=== PATIENT | male | born 1960 | race Caucasian/White ===

== ENCOUNTER → 2018-01-04 18:00 | Outpatient (CLI) | payer OTHER, SELFPAY ==
--- NOTE | 2018-01-04 18:03 | DI.MRI.S_ITS ---
PROCEDURE: MR CERVICAL SPINE WO CON INDICATIONS: CERVICALGIA TECHNIQUE: Noncontrast sagittal T1 spin echo and T2 fast spin echo, sagittal STIR, foraminal oblique sagittal T2 fast spin echo, and axial gradient echo or T2 fast spin echo through the cervical spine. COMPARISON: [facility], MR, C-SPINE WITHOUT CONTRAST, 01/02/2014, 14:36. FINDINGS: Image quality: There are motion artifacts. Alignment and Curvature: There is loss of cervical lordosis with mild kyphotic curvature. There is normal bony alignment. Bone Marrow: Marrow demonstrates normal overall signal. Spinal Cord: There is mild syrinx in the lower cervical cord at C6-C7, unchanged from the last exam. Visualized spinal cord has normal size and signal. No cerebellar tonsillar herniation. Paraspinous Soft Tissues: No paravertebral masses. Prevertebral soft tissues are normal in thickness. C2-C3: Preserved disc height. Mild disc desiccation. There is broad posterior disc bulge, eccentric toward the left. Bilateral uncovertebral hypertrophy. The central canal is patent. No foraminal stenosis. C3-C4: Preserved disc height. Mild disc desiccation. There is broad posterior disc bulge and disc osteophyte complex, left greater than right. Bilateral uncovertebral hypertrophy. The central canal is xqenphbx-iz-ybjvbexp narrowed. Moderate bilateral foraminal stenosis. Compared to the last exam, there is increased central canal and foramina stenosis. C4-C5: Mild loss of disc height and disc desiccation. There is diffuse disc bulge and disc osteophyte complex. Bilateral uncovertebral hypertrophy. Mild facet arthropathy bilaterally. The central canal is uqeeaplq-mo-nqolhdij narrowed. Severe bilateral foraminal stenosis. Compared to the last exam, there is increased central canal and foramina stenosis. C5-C6: Mild loss of disc height and disc desiccation. There is diffuse disc bulge and disc osteophyte complex. Bilateral uncovertebral hypertrophy. Mild facet arthropathy bilaterally. The central canal is bvklfbuw-hd-tvfbpaak narrowed. Severe bilateral foraminal stenosis. Compared to the last exam, there is increased central canal and foramina stenosis. C6-C7: Mild loss of disc height and disc desiccation. There is diffuse disc bulge and disc osteophyte complex. Bilateral uncovertebral hypertrophy. The central canal is mildly narrowed. Severe bilateral foraminal stenosis. Compared to the last exam, there is increased central canal and foramina stenosis. C7-T1: Normal appearance. IMPRESSION: 1. Progression of degenerative disc disease in the cervical spine. 2. Moderate to severe central canal stenosis at C3-C4, C4-C5 and C5-C6. 3. Multilevel foraminal stenosis as described. 4. Mild focal syrinx in the lower cervical cord at the level of C6-C7, unchanged from the last exam. Dictated by: Hamida Alarcon M.D. on 01/05/2018 at 9:08 Transcribed by: ABDELRAHMAN on 01/05/2018 at 9:30 Approved by: Hamida Alarcon M.D. on 01/05/2018 at 10:16
== END ==
PROVIDERS: PCP Internal Medicine; Visit Provider Internal Medicine
DX: M50.31 Other cervical disc degeneration, high cervical region (principal); M48.02 Spinal stenosis, cervical region
CPT/HCPCS: 72141

== ENCOUNTER → 2018-01-11 18:40 | Outpatient (CLI) | payer OTHER, SELFPAY ==
--- NOTE | 2018-01-11 18:42 | DI.MRI.S_ITS ---
PROCEDURE: MR KNEE RT WO CON INDICATIONS: RIGHT KNEE PAIN TECHNIQUE: Noncontrast sagittal PD fast spin echo and T2 fast spin echo with fat saturation, sagittal 3-D FLASH with fat saturation; coronal T1 spin echo and PD fast spin echo with fat saturation, and axial PD fast spin echo with fat saturation through the knee. COMPARISON: [facility], MR, KNEE WITHOUT CONTRAST, 01/29/2015, 14:07. FINDINGS: Image quality: Excellent. Menisci: There is a complex degenerative tear of the medial meniscus redemonstrated including an inferior flap tear component centered in the body but also extending into the posterior and anterior horns with associated mild peripheral extrusion inferiorly in the medial gutter. There is also an irregular component along the free edge of the posterior horn extending to the junction with the meniscal root ligament without rupture. The findings appear similar to the prior study. The lateral meniscus appears intact. Cruciate ligaments: The anterior and posterior cruciate ligaments appear intact. Medial structures: The medial collateral ligament demonstrates mild thickening and attenuated signal proximally compatible sequela of a prior sprain. There is a new small cyst which appears to extend through the medial collateral ligament distally measuring up to approximately 9 mm compatible with a ganglion cyst or a parameniscal cyst. There is also increased edema along the medial capsule likely representing reactive changes. The semimembranosus tendon insertions and meniscocapsular junction appear intact. Visualized portions of the pes anserinus tendons appear intact without associated bursal fluid collections. Lateral structures: The lateral collateral ligament, long and short heads of the biceps femoris tendon appear intact. The popliteus tendon appears intact. Iliotibial band appears normal. Anterior structures: The quadriceps and patellar tendons appear intact. Patellar alignment is normal. No femoral trochlear dysplasia or ventral trochlear prominence. No edema in the infrapatellar fat pad. Bones and cartilage: No bone marrow contusions or fractures. Mild tricompartmental osteophytosis is noted. There is buhh-ng-lsbgzkvr cartilage thinning within the medial compartment with partial thickness chondral fraying. In the lateral compartment, there is also superficial chondral fraying. In the patellofemoral compartment, there is aziz-de-eajoexcl cartilage thinning with superficial chondral fissuring in the lateral patellofemoral compartment. There is suggestion of small full-thickness foci of fissuring along the medial and lateral patellar facets with associated small foci of subchondral edema. Joint space: There is physiologic knee joint fluid. No Vásquez's cyst. Normal appearing synovial plicae are incidentally noted. IMPRESSION: 1. 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 2. New small cyst superficial to the distal MCL compatible with a small ganglion cyst or para meniscal cyst. Sequela of a prior proximal axial spring again noted. Mild edema along the medial capsule likely represents reactive changes. 3. Phqe-kn-qlzwjvri tricompartmental osteoarthritic changes. Dictated by: Mario Kwok M.D. on 01/12/2018 at 11:04 Approved by: Mario Kwok M.D. on 01/12/2018 at 11:14
== END ==
PROVIDERS: PCP Internal Medicine; Visit Provider Internal Medicine
DX: S83.241A Other tear of medial meniscus, current injury, right knee, initial encounter (principal); M17.11 Unilateral primary osteoarthritis, right knee
CPT/HCPCS: 73721

== ENCOUNTER 2019-03-14 11:22 | Day surgery (SDC) | payer OTHER, SELFPAY ==
[2019-03-14] VITALS (7 sets, daily range): BP systolic 136–160; BP diastolic 90–100; PULSE 60–73; RESP 14–21; TEMP 36.2–36.6; O2SAT 95–100
--- NOTE | 2019-03-14 | PATH_ITS ---
[facility] Accession Number: [id number] . 01 Material submitted: . PART A: esophagus - DISTAL ESOPHAGEAL BIOPSY PART B: esophagus - PROXIMAL ESOPHAGEAL BIOPSY . 02 Diagnosis: A-B. Distal Esophagus, Proximal Esophagus, Biopsies: Squamous epithelium with no diagnostic abnormality. Intraepithelial eosinophils are not increased. Negative for dysplasia and malignancy. MRV 03/15/2019 1415 Local . 02 Electronically signed: . Ronit Muaricio MD, Pathologist NPI- [id number] . 01 Gross description: . Part A: DISTAL ESOPHAGEAL BIOPSY: Received in formalin is 1 fragment(s) of pollack, soft tissue measuring 0.1 x 0.1 x 0.1 cm submitted entirely in 1 cassette(s) Part B: PROXIMAL ESOPHAGEAL BIOPSY: Received in formalin are 2 fragment(s) of pollack, soft tissue measuring 0.1 x 0.1 x 0.1 cm to 0.3 x 0.2 x 0.1 cm submitted entirely in 1 cassette(s) /[facility] 03/15/2019 0000 Local . 02 Pathologist provided ICD-10: R13.12 . 02 CPT . 727374, 115692 Performed at: 01 [facility] [address], [place], [place] [id number] MD Mario Maher MD Phone: [phone] Performed at: 02 [facility] [address] [place], [place] [id number] MD Ronit Mauricio MD Phone: [phone]
--- NOTE | 2019-03-14 12:22 | SUR.PREOP ---
Patient had large emesis towards end of prep. Patient forgot med list.
--- NOTE | 2019-03-14 14:21 | PM.HP.1 ---
History of Present Illness History of Present Illness Chief complaint: [id number] COLONOSCOPY/EGD/ANES Patient History Family & Social History Social History: household members none Meds Home Medications and Allergies Home Medications Medication Instructions Recorded Confirmed Type Actos 03/14/19 History OxyContin 03/14/19 History nifedipine 03/14/19 History oxycodone 03/14/19 History pantoprazole 03/14/19 History Allergies Allergy/AdvReac Type Severity Reaction Status Date / Time No Known Drug Allergies Allergy Verified 03/14/19 12:20 Review of Systems Review of Systems ROS Unobtainable: All systems reviewed & are unremarkable except as noted in HPI and below Exam Vital Signs (past 8 hours): - 03/14/19 12:11 Temperature 97.8 F Pulse Rate 73 Respiratory Rate 16 Blood Pressure 151/95 H Pulse Oximetry 98 Oxygen Delivery Method Room Air Narrative Exam Narrative: Awake, alert, oriented x3, no acute distress, lungs clear, heart regular rate rhythm Assessment & Plan Assessment & Plan narrative: Dysphagia, GERD, colon cancer screening for EGD and colonoscopy
--- NOTE | 2019-03-14 14:50 | PM.OP.ENDO ---
Operative Date/Time/Diagnoses Date of procedure: 03/14/19 Procedure & Clinicians Study performed: EGD with biopsy Sedation: Monitored anesthesia care was provided by the anesthesia service Same procedure as scheduled: Yes Indications: Esophageal dysphagia, early satiety Procedure Notes Procedure in detail: Prior to the procedure, history and physical was performed, and patient medications and allergies were reviewed. Preprocedure nursing history and assessment was reviewed. Patient identification and proposed procedure were verified by the physician and nurse in the procedure room. The physical status of the patient was reassessed after the procedure. After informed consent was obtained including risks, benefits, and alternatives, the scope was passed under direct vision. Throughout the procedure, the patient's blood pressure, pulse, and oxygen saturations were monitored continuously. The upper endoscope was introduced through the mouth and advanced to the 2nd portion of the duodenum. Retroflexion was performed in the stomach. The patient tolerated the procedure well. The entire examined esophagus was normal appearing. The Z-line was regular and was located at 42 cm from the incisors. Biopsies were taken from the proximal and distal esophagus to rule out eosinophilic esophagitis. The entire examined stomach was normal appearing. The entire examined duodenum was normal appearing. Impression: Normal appearing esophagus. Biopsy to rule out EOE Normal appearing stomach Normal appearing examined duodenum Complications: other (EBL minimal. No complications) Post-procedure Plan for aftercare: Follow-up pathology results Follow anti-reflux diet and lifestyle Proceed with colonoscopy today
--- NOTE | 2019-03-14 15:02 | SUR.OPER ---
cecum time 1500
--- NOTE | 2019-03-14 15:04 | PM.OP.ENDO ---
Operative Date/Time/Diagnoses Date of procedure: 03/14/19 Procedure & Clinicians Study performed: Colonoscopy Sedation: Monitored anesthesia care provided by the anesthesia service Same procedure as scheduled: Yes Indications: Colon cancer screening. Date of last colonoscopy unknown Procedure Notes Procedure in detail: Prior to the procedure, history and physical was performed, and patient medications and allergies were reviewed. Preprocedure nursing history and assessment was reviewed. Patient identification and proposed procedure were verified by the physician and nurse in the procedure room. The physical status of the patient was reassessed after the procedure. After informed consent was obtained including risks, benefits, and alternatives, the scope was passed under direct vision. Throughout the procedure, the patient's blood pressure, pulse, and oxygen saturations were monitored continuously. The colonoscope was introduced through the anus and advanced to the cecum as identified by the appendiceal orifice and ileocecal valve. The patient tolerated the procedure well. Bowel prep was deemed poor and inadequate to detect polyps greater than 5 mm. Digital rectal examination and perianal examination were unremarkable. Retroflexion in the rectum revealed grade 1 internal hemorrhoids. There was solid and semi-solid stool throughout the entire examined colon. Lavage was attempted but clearance was not adequate to rule out small or large polyps Impression: Internal hemorrhoids Poor bowel prep No specimens taken Complications: other (EBL none. No complications) Post-procedure Plan for aftercare: Repeat colonoscopy at the next available appointment or within 3 months Resume previous diet Resume home medications Discharge home with escort when discharge criteria met
== END 2019-03-14 16:21 | disposition home or self-care (01) ==
LOC: ENDO 11:28
PROVIDERS: PCP Internal Medicine; Visit Provider Internal Medicine
PROC: 0DJ08ZZ Inspection of Upper Intestinal Tract, Via Natural or Artificial Opening Endoscopic (ICD-10-PCS; CPT 43235; principal; 2019-03-14 13:30)
PROC: 0DJD8ZZ Inspection of Lower Intestinal Tract, Via Natural or Artificial Opening Endoscopic (ICD-10-PCS; CPT 45378; 2019-03-14 13:30)
DX: Z86.010 Personal history of colon polyps (principal); R13.12 Dysphagia, oropharyngeal phase; R68.81 Early satiety; K64.0 First degree hemorrhoids
CPT/HCPCS: 43239; 45378; J2250; J2704; J3010

== ENCOUNTER → 2025-05-03 13:59 | Outpatient (CLI) | payer OTHER, SELFPAY | LOC: WC 14:29 | PROVIDERS: PCP Family Medicine; Referring Provider Family Medicine; Visit Provider Surgery | DX: E11.621 Type 2 diabetes mellitus with foot ulcer (principal); L97.522 Non-pressure chronic ulcer of other part of left foot with fat layer exposed; I73.9 Peripheral vascular disease, unspecified; L53.8 Other specified erythematous conditions; L84 Corns and callosities; Z89.412 Acquired absence of left great toe | CPT/HCPCS: 11042; 87070; 87075; 87077; 87186; 87205; 99214 ==

== ENCOUNTER → 2025-05-13 14:07 | Outpatient (CLI) | payer OTHER, SELFPAY | LOC: WC 14:19 | PROVIDERS: Visit Provider Surgery | DX: E11.621 Type 2 diabetes mellitus with foot ulcer (principal); L97.522 Non-pressure chronic ulcer of other part of left foot with fat layer exposed; I73.9 Peripheral vascular disease, unspecified; L53.8 Other specified erythematous conditions; L84 Corns and callosities; Z89.412 Acquired absence of left great toe | CPT/HCPCS: 11042; 99213 ==